=== PATIENT | female | born 1980 | race Caucasian/White ===

== ENCOUNTER → 2018-11-08 | Outpatient (CLI) | payer OTHER ==
--- NOTE | 2018-11-08 09:48 | MM ---
Reason for exam: screening (asymptomatic). Baseline mammogram. History: Family history of breast cancer in paternal grandmother, breast cancer in paternal aunt, and breast cancer in paternal cousin. Took hormonal contraceptives beginning at age 15. Physical Findings: Nurse Summary: 1cm nodule in the left breast at 9 o'clock (nurse gustabo). MG 3D Screening Mammo W/Cad Bilateral CC and MLO view(s) were taken. There are scattered fibroglandular densities. Nodular asymmetry media central right breast. Not well seen on MLO view. Palpable marker left upper outer quadrant. These results were verbally communicated with the patient and result sheet given to the patient on 11/08/18. ASSESSMENT: Incomplete: need additional imaging evaluation, BI-RAD 0 RECOMMENDATION: Special view mammogram of the right breast.
--- NOTE | 2018-11-08 10:05 | MM ---
Reason for exam: additional evaluation requested from abnormal screening. History: Family history of breast cancer in paternal grandmother, breast cancer in paternal aunt, and breast cancer in paternal cousin. Took hormonal contraceptives beginning at age 15. Physical Findings: Breast exam preformed at baseline screening. MG 3D Work Up W/Cad RT Spot compression CC, spot compression LM, and LM view(s) were taken of the right breast. There are scattered fibroglandular densities. Medial asymmetric density disperses on spot 3D CC view. Some asymmetric density develops posteriorly and superiorly on the 3D lateral spot likely summation artifact. 6 month follow up recommended. These results were verbally communicated with the patient and result sheet given to the patient on 11/08/18. ASSESSMENT: Incomplete: need additional imaging evaluation, BI-RAD 0 RECOMMENDATION: Ultrasound. (left breast upper outer quadrant and palpable)
--- NOTE | 2018-11-08 10:13 | USB ---
Reason for exam: additional evaluation requested from abnormal screening. History: Family history of breast cancer in paternal grandmother, breast cancer in paternal aunt, and breast cancer in paternal cousin. Took hormonal contraceptives beginning at age 15. US Breast Workup Limited LT Left limited breast ultrasound including focal area of concern, retroareolar and axilla demonstrates no cystic or solid lesion seen. Scanned 12-3 o'clock including 1-2 o'clock palpable. These results were verbally communicated with the patient and result sheet given to the patient on 11/08/18. ASSESSMENT: Probably benign, BI-RAD 3 RECOMMENDATION: Follow-up diagnostic mammogram in 6 months. (right breast) Manage on a clinical basis with regard to any suspicious palpable abnormality. Consider BRCA testing. The patient may qualify for alternating screening with MRI if lifetime risk of breast cancer is greater than 20%. LISAD
== END | disposition home or self-care (01) ==
LOC: RADMAMWWP 07:28
PROVIDERS: ATTEND Family Medicine
DX: Z12.31 Encounter for screening mammogram for malignant neoplasm of breast (principal); R92.8 Other abnormal and inconclusive findings on diagnostic imaging of breast
CPT/HCPCS: 77061; 77063; 77065; 77067

== ENCOUNTER → 2019-04-25 | Outpatient (CLI) | payer OTHER ==
--- NOTE | 2019-04-26 11:11 | MM ---
Reason for exam: follow-up at short interval from prior study. Last mammogram was performed 6 months ago. History: Family history of breast cancer in paternal grandmother, breast cancer in paternal aunt, and breast cancer in paternal cousin. Took hormonal contraceptives beginning at age 15. Physical Findings: Nurse did not find any significant physical abnormalities on exam. MG 3D Diag Mammo W/Cad RT CC and MLO view(s) were taken of the right breast. Prior study comparison: November 08, 2018, right breast MG 3d work up w/cad RT. November 08, 2018, bilateral MG 3d screening mammo w/cad. The breast tissue is heterogeneously dense. This may lower the sensitivity of mammography. Two right central asymmetries are unchanged at middle posterior depth 8.5-9cm from nipple. These results were verbally communicated with the patient and result sheet given to the patient on 04/25/19. ASSESSMENT: Probably benign, BI-RAD 3 RECOMMENDATION: Follow-up diagnostic mammogram of both breasts in 6 months. Back on schedule for October 2019.
== END | disposition home or self-care (01) ==
LOC: RADMAMWWP 08:13
PROVIDERS: ATTEND Family Medicine
DX: R92.8 Other abnormal and inconclusive findings on diagnostic imaging of breast (principal)
CPT/HCPCS: 77061; 77065

== ENCOUNTER → 2019-10-27 | Outpatient (CLI) | payer OTHER ==
--- NOTE | 2019-10-28 08:23 | US ---
EXAMINATION TYPE: US transvaginal DATE OF EXAM: 10/27/2019 COMPARISON: US Pelvis 2013 CLINICAL HISTORY: N92.1 MENORRHAGIA WITH IRREGULAR CYCLE. Menorrhagia and irregular cycle. Pain is ch ronic. Spotting. . TECHNIQUE: Transvaginal (TV). Date of LMP: 10/07/2019 EXAM MEASUREMENTS: Uterus: 9.7 x 6.3 x 5.4 cm Endometrial Stripe: 1.8 cm Right Ovary: 3.4 x 1.4 x 1.7 cm Left Ovary: 3.9 x 2.1 x 1.8 cm 1. Uterus: Anteverted Anechoic areas seen in RIN. Largest measures: 1.1 x 0.8 x 0.9 cm. 2. Endometrium: Appears thickened/heterogeneous with some peripheral and internal vascular flow. Pos sible arcuate versus septate uterus. 3. Right Ovary: Appears wnl 4. Left Ovary: Appears wnl 5. Bilateral Adnexa: Appear wnl 6. Posterior cul-de-sac: Appears wnl IMPRESSION: Abnormally thickened endometrium measuring up to 1.8 cm. Some internal and peripheral vas cular flow is seen to a considerations are for endometrial polyp, endometrial mass or endometrial hyp erplasia. Direct visualization is recommended.
== END | disposition home or self-care (01) ==
LOC: RADUSWWP 12:47
PROVIDERS: ATTEND Family Medicine
DX: N85.8 Other specified noninflammatory disorders of uterus (principal)
CPT/HCPCS: 76830

== ENCOUNTER → 2019-12-26 | Outpatient (CLI) | payer OTHER ==
[2019-12-26 16:19] LABS: Basophils % (A) 0 %; Eosinophils # (A) 0.1 k/uL (0-0.7); Eosinophils % (A) 1 %; HCT 40.6 % (34.0-46.0); HGB 13.5 gm/dL (11.4-16.0); Lymphocytes # (A) 2.2 k/uL (1.0-4.8); Lymphocytes % (A) 27 %; MCH 31.2 pg (25.0-35.0); MCHC 33.2 g/dL (31.0-37.0); MCV 94.1 fL (80.0-100.0); Mean Platelet Volume 8.1; Monocytes # (A) 0.3 k/uL (0-1.0); Monocytes % (A) 4 %; Neutrophils # (A) 5.3 k/uL (1.3-7.7); Neutrophils % (A) 66 %; Platelet Count 234 k/uL (150-450); RBC 4.31 m/uL (3.80-5.40); RDW 12.4 % (11.5-15.5); WBC 7.9 k/uL (3.8-10.6)
== END | disposition home or self-care (01) ==
LOC: LABPAT 15:18
PROVIDERS: ATTEND Obstetrics & Gynecology
DX: Z01.812 Encounter for preprocedural laboratory examination (principal); N92.0 Excessive and frequent menstruation with regular cycle
CPT/HCPCS: 36415; 85025

== ENCOUNTER 2020-01-03 07:29 | Day surgery (SDC) | payer OTHER ==
[2019-12-30 14:04] VITALS: BMI 34.4
[~2020-01-03 07:29] MED LIST: DEXAMETHASONE SOD PHOSPHATE 10 MG/ML 1 ML VIAL IV ONE; HYDROmorphone 0.5 MG/0.5 ML SYRINGE IVP PRN; LACTATED RINGERS 1,000 ML IV SCH; LIDOCAINE 1% 20 ML VIAL (10MG/ML) FOR IV START INTRADERMA PRN; ONDANSETRON 4 MG/2 ML VIAL IVP ONE; Pre Op ABX Message 1 EACH MISC MISCELLANE ONE; SCOPOLAMINE 1.5MG/72HR PATCH TRANSDERM ONE
[2020-01-03] MEDS ORDERED: PROPOFOL 10 MG/ML 20 ML VIAL IV ONE (08:22)
[2020-01-03] MEDS ORDERED: fentaNYL (PF) 50 MCG/ML 2 ML AMP ONE (08:22)
[2020-01-03] MEDS ORDERED: MIDAZOLAM 2 MG/2 ML VIAL ONE (08:22)
[2020-01-03] MEDS ORDERED: KETOROLAC 30 MG/ML 1 ML VIAL ONE (08:22)
[2020-01-03] MEDS ORDERED: LIDOCAINE 1% INJ 10MG/ML (20 ML MDV) ONE (08:22)
[2020-01-03] MEDS ORDERED: LIDOCAINE 1%-EPI 1:100,000 20 ML VIAL SQ ONE (08:40)
[2020-01-03] MEDS ORDERED: SILVER NITRATE APPLICATOR 1 EACH STICK..EA. TOPICAL ONE (08:50)
[2020-01-03 09:11] VITALS: TEMP 99.1
--- NOTE | 2020-01-03 09:28 | P.OP ---
Date of Procedure: 01/03/20 Preoperative Diagnosis: Menometrorrhagia Postoperative Diagnosis: Same Procedure(s) Performed: Diagnostic hysteroscopy with NovaSure endometrial ablation Anesthesia: MAC Surgeon: Suyapa Alcantara Estimated Blood Loss (ml): 25 IV fluids (ml): 900 Urine output (ml): 75 Pathology: none sent Condition: stable Disposition: PACU Operative Findings: Fluffy endometrium with no gross intracavitary lesions Description of Procedure: After the patient was met in the preoperative holding area and all questions were answered, she was taken to the operating room where anesthetic was administered without incident. Appropriate timeout procedures were undertaken. The patient was positioned, prepped and draped in the dorsal lithotomy position. Exam under anesthetic was undertaken. The bladder was drained for approximately 75 mL of clear urine. A speculum was placed in the vagina and the cervix was grasped anteriorly with a single-tooth tenaculum. Paracervical block with lidocaine plus epinephrine was placed. The uterus was sounded to 10 cm. The cervix was RD on rather dilated and allowed for passage of the diagnostic hysteroscope without incident. The hysteroscope was introduced and a fluffy end ometrium was appreciated. The tubal ostia were not visualized. The hysteroscope was removed and the cervix was further dilated to allow for passage of the NovaSure ablation device. The ablation device was inserted with a cavity length of 5.5 cm, width of 4.8 cm. Cavity assessment test was passed. The device was enabled for aid treatment cycle of 120 seconds with a power of 145 W. Following cessation of the treatment cycle the device was removed and the hysteroscope was reinserted. Desiccation of the endometrium was appreciated. Hysteroscope was removed. Tenaculum was removed. Silver nitrate was applied to the tenaculum sites which were bleeding. Hemostasis was noted. The rest of the instruments were removed from the vagina. The patient was awoken from anesthetic without incident and transported to recovery area in good condition. All counts reported to me as correct.
[2020-01-03 10:53] VITALS: BP 148/94; PULSE 83; RESP 18
== END 2020-01-03 10:54 | disposition home or self-care (01) ==
LOC: OR 07:29
PROVIDERS: ATTEND Obstetrics & Gynecology
DX: N92.1 Excessive and frequent menstruation with irregular cycle (principal); G43.909 Migraine, unspecified, not intractable, without status migrainosus; E66.9 Obesity, unspecified; Z91.048 Other nonmedicinal substance allergy status; Z88.0 Allergy status to penicillin; Z88.1 Allergy status to other antibiotic agents; Z98.818 Other dental procedure status; Z68.34 Body mass index [BMI] 34.0-34.9, adult; Z82.49 Family history of ischemic heart disease and other diseases of the circulatory system; Z80.42 Family history of malignant neoplasm of prostate; Z80.8 Family history of malignant neoplasm of other organs or systems
CPT/HCPCS: 81025; 58563; J2250; J1100; J2405; J2001; J3010; J1885; J2704

== ENCOUNTER → 2021-01-15 | Outpatient (CLI) | payer OTHER ==
--- NOTE | 2021-01-15 09:59 | MM ---
Reason for exam: additional evaluation requested from prior study. Last mammogram was performed 1 year and 9 months ago. History: Family history of breast cancer in paternal grandmother at age 60, breast cancer in paternal aunt at age 80, and breast cancer in paternal cousin. Took hormonal contraceptives for 5 years beginning at age 15. Physical Findings: Nurse did not find any significant physical abnormalities on exam. MG 3D Diag Mammo W/Cad [facility] Bilateral CC and MLO view(s) were taken. Spot compression CC view(s) were taken of the right breast. Prior study comparison: April 25, 2019, right breast MG 3d diag mammo w/cad RT. November 08, 2018, right breast MG 3d work up w/cad RT. The breast tissue is heterogeneously dense. This may lower the sensitivity of mammography. There is no discrete abnormality. These results were verbally communicated with the patient and result sheet given to the patient on 01/15/21. ASSESSMENT: Benign, BI-RAD 2 RECOMMENDATION: Routine screening mammogram of both breasts in 1 year.
== END | disposition home or self-care (01) ==
LOC: RADMAMWWP 07:29
PROVIDERS: ATTEND Family Medicine
DX: R92.8 Other abnormal and inconclusive findings on diagnostic imaging of breast (principal)
CPT/HCPCS: 77062; 77066

== ENCOUNTER → 2022-01-17 | Outpatient (CLI) | payer OTHER ==
--- NOTE | 2022-01-21 11:02 | MM ---
Reason for exam: screening (asymptomatic). Last mammogram was performed 1 year ago. History: Family history of breast cancer in paternal grandmother at age 60, breast cancer in paternal aunt at age 80, and breast cancer in paternal cousin. Took hormonal contraceptives for 5 years beginning at age 15. Physical Findings: A clinical breast exam by your physician is recommended on an annual basis and results should be correlated with mammographic findings. MG 3D Screening Mammo W/Cad Bilateral CC and MLO view(s) were taken. Prior study comparison: January 15, 2021, bilateral MG 3d diag mammo w/cad [facility]. April 25, 2019, right breast MG 3d diag mammo w/cad RT. There are scattered fibroglandular densities. No significant changes when compared with prior studies. ASSESSMENT: Benign, BI-RAD 2 RECOMMENDATION: Routine screening mammogram of both breasts in 1 year.
== END | disposition home or self-care (01) ==
LOC: RADMAMWWP 07:29
PROVIDERS: ATTEND Obstetrics & Gynecology
DX: Z12.31 Encounter for screening mammogram for malignant neoplasm of breast (principal); Z80.3 Family history of malignant neoplasm of breast
CPT/HCPCS: 77063; 77067

== ENCOUNTER → 2024-02-23 | Outpatient (CLI) | payer OTHER ==
--- NOTE | 2024-02-25 12:57 | MM ---
Reason for Exam: Screening (asymptomatic). Last mammogram was performed 1 year(s) and 2 month(s) ago. Patient History: Menarche at age 11. First Full-Term at age 21. Premenopausal. Hormonal Contraceptives for 5 years from age 15 until age 20. Paternal grandmother had breast cancer, age 60. Paternal cousin had breast cancer, age 50. Paternal aunt had breast cancer, age 80. Risk Values: Estrella 5 year model risk: 0.7%. NCI Lifetime model risk: 8.6%. Prior Study Comparison: 01/15/2021 Bilateral Diagnostic Mammogram, [facility]. 01/17/2022 Bilateral Screening Mammogram, [facility]. 01/19/2023 Bilateral MG 3D screening mammo w/cad, [facility]. Tissue Density: The breasts are heterogeneously dense, which may obscure small masses. Findings: Analyzed By CAD. There is no suspicious group of microcalcifications or new suspicious mass in either breast. Overall Assessment: Benign, BI-RAD 2 Management: Screening Mammogram of both breasts in 1 year. . Patient should continue monthly self-breast exams. A clinical breast exam by your physician is recommended on an annual basis. This exam should not preclude additional follow-up of suspicious palpable abnormalities. Note on Estrella scores and lifetime risk: 1. A Estrella score greater than 3% is considered moderate risk. If this is the case, consider specialist referral to assess eligibility for a risk reducing agent. 2. If overall lifetime risk for the development of breast cancer is 20% or higher, the patient may qualify for future screening with alternating mammogram and breast MRI. Electronically signed and approved by: Geovanni Watkins M.D. Radiologis
== END | disposition home or self-care (01) ==
LOC: RADMAMWWP 13:01
PROVIDERS: ATTEND Obstetrics & Gynecology
DX: Z12.31 Encounter for screening mammogram for malignant neoplasm of breast (principal); Z80.3 Family history of malignant neoplasm of breast
CPT/HCPCS: 77063; 77067

== ENCOUNTER → 2025-04-10 | Outpatient (CLI) | payer OTHER ==
--- NOTE | 2025-04-10 08:52 | MM ---
Reason for Exam: Clinical finding. Last mammogram was performed 1 year(s) and 1 month(s) ago. Indicated Problems: Lump or thickening of the left side for 3 Week(s). Patient History: Menarche at age 11. First Full-Term at age 21. Premenopausal. Hormonal Contraceptives for 5 years from age 15 until age 20. Paternal grandmother had breast cancer, age 60. Paternal cousin had breast cancer, age 50. Paternal aunt had breast cancer, age 80. Risk Values: Estrella 5 year model risk: 0.8%. NCI Lifetime model risk: 8.5%. Prior Study Comparison: 11/08/2018 Bilateral Screening Mammogram, [facility]. 11/08/2018 Right Diagnostic Mammogram, [facility]. 11/08/2018 Left Diagnostic Ultrasound, [facility]. 04/25/2019 Right Diagnostic Mammogram, [facility]. 01/15/2021 Bilateral Diagnostic Mammogram, [facility]. 01/17/2022 Bilateral Screening Mammogram, [facility]. 01/19/2023 Bilateral MG 3D screening mammo w/cad, [facility]. 02/23/2024 Bilateral MG 3D screening mammo w/cad, [facility]. Tissue Density: There are scattered areas of fibroglandular density. Findings: Analyzed By CAD. No finding to correlate with palpable abnormality. Overall Assessment: Incomplete: need additional imaging evaluation, BI-RAD 0 Management: Diagnostic Breast Ultrasound of the left breast. Results were given to the patient verbally at the time of exam. Patient should continue monthly self-breast exams. A clinical breast exam by your physician is recommended on an annual basis. This exam should not preclude additional follow-up of suspicious palpable abnormalities. Note on Estrella scores and lifetime risk: 1. A Estrella score greater than 3% is considered moderate risk. If this is the case, consider specialist referral to assess eligibility for a risk reducing agent. 2. If overall lifetime risk for the development of breast cancer is 20% or higher, the patient may qualify for future screening with alternating mammogram and breast MRI. [facility], , 04/10/2025 8:49 AM. Electronically signed and approved by: Geremias Ward DO
--- NOTE | 2025-04-10 09:28 | USB ---
Reason for Exam: Clinical finding. Patient History: Menarche at age 11. First Full-Term at age 21. Premenopausal. Hormonal Contraceptives for 5 years from age 15 until age 20. Paternal grandmother had breast cancer, age 60. Paternal cousin had breast cancer, age 50. Paternal aunt had breast cancer, age 80. Risk Values: Estrella 5 year model risk: 0.8%. NCI Lifetime model risk: 8.5%. Technique: Method: Targeted. Prior Study Comparison: 01/17/2022 Bilateral Screening Mammogram, [facility]. 01/19/2023 Bilateral MG 3D screening mammo w/cad, [facility]. 02/23/2024 Bilateral MG 3D screening mammo w/cad, [facility]. Findings: The area of palpable concern of the left breast, the axilla of the left breast and the retroareolar of the left breast were scanned. Technique utilized:US breast limited LT Image; Ultrasound imaging of: Area of palpable abnormality., retroareolar region and axilla. Irregular area of hyperechoic tissue with some possible shadowing at 2:00 3 cm from the nipple Negative left axilla. Overall Assessment: Probably benign, BI-RAD 3 Management: Diagnostic Breast Ultrasound of the left breast in 3 months. A clinical breast exam by your physician is recommended on an annual basis and results should be correlated with mammographic findings. This exam should not preclude additional follow-up of suspicious palpable abnormalities. Results were given to the patient verbally at the time of exam. [facility], , 04/10/2025 9:26 AM. Electronically signed and approved by: Geremias Ward DO
== END | disposition home or self-care (01) ==
LOC: RADMAMWWP 08:25
PROVIDERS: ATTEND Family Medicine
DX: R92.323 Mammographic fibroglandular density, bilateral breasts (principal); Z80.3 Family history of malignant neoplasm of breast; Z92.0 Personal history of contraception
CPT/HCPCS: 77062; 77066

== ENCOUNTER 2025-06-23 10:32 | Day surgery (SDC) | payer OTHER ==
[2025-06-19 16:06] VITALS: BMI 39.1
[2025-06-23] MEDS: IV FLUID CONTINUATION 1,000 ML IV ONE (11:25)
[2025-06-23 12:03] VITALS: TEMP 98
[2025-06-23] MEDS ORDERED: PROPOFOL 10 MG/ML 20 ML VIAL IV ONE (12:17)
--- NOTE | 2025-06-23 12:30 | P.PCN ---
Date of Procedure: 06/23/25 Procedure(s) Performed: BRIEF HISTORY: Patient is a 44-year-old pleasant white female scheduled for an elective colonoscopy as a part of screening for colon cancer PROCEDURE PERFORMED: Colonoscopy. PREOPERATIVE DIAGNOSIS: Screening for colon cancer. IV sedation per Anesthesia. PROCEDURE: After informed consent was obtained, the patient, was brought into the endoscopy unit. IV sedation was administered by Anesthesia under continuous monitoring. Digital rectal examination was normal. Initially the Olympus CF-160 flexible video colonoscope was then inserted in the rectum, gradually advanced into the cecum without any difficulty. Careful examination was performed as the scope was gradually being withdrawn. Ileocecal valve and the appendiceal orifice were visualized and appeared normal. Prep was excellent. Mucosa of the cecum, ascending colon, transverse colon, descending colon, sigmoid colon, and rectum appeared normal. Retroflexion was performed in the rectum and no lesions were seen. The patient tolerated the procedure well. IMPRESSION: Normal-appearing colon from rectum to cecum with no evidence of colorectal neoplasia. RECOMMENDATIONS: Findings of this examination were discussed with the patient as well as the family. She was advised to have repeat screening colonoscopy in 10 years..
[2025-06-23 12:48] VITALS: RESP 16
[2025-06-23 12:56] VITALS: BP 141/93; PULSE 87
== END 2025-06-23 13:08 | disposition home or self-care (01) ==
LOC: ORWHC2ENDO 10:32
PROVIDERS: ATTEND Internal Medicine Gastroenterology
DX: Z12.11 Encounter for screening for malignant neoplasm of colon (principal); I10 Essential (primary) hypertension; F17.200 Nicotine dependence, unspecified, uncomplicated; Z88.0 Allergy status to penicillin; Z88.8 Allergy status to other drugs, medicaments and biological substances; Z88.1 Allergy status to other antibiotic agents; Z79.899 Other long term (current) drug therapy
CPT/HCPCS: 81025; 45378; J2704